=== PATIENT | male | born 1955 | race Caucasian/White ===

== ENCOUNTER 2019-01-17 14:21 | Emergency (ER) | payer BC, OTHER ==
[2019-01-17 14:55] VITALS: BP 119/76; PULSE 95; TEMP 98.6; BMI 26.6
--- NOTE | 2019-01-17 15:09 | PDOC ---
History of Present Illness - General Chief Complaint: Shortness of Breath Stated Complaint: Shortness of Breath Time Seen by Provider: 01/17/19 14:59 - History of Present Illness Initial Comments: 01/17/19 15:09 Mr. Lewis is a 63 yo male w/ pmh of HTN, parkinson's, and DM who presents for evaluation from colonoscopy suite following routine colonoscopy over concern for aspiration during procedure today. Patient reports he has cough s/p procedure as well as sore throat however denies other complaints at this time. The patient denies chest pain, shortness of breath, headache and dizziness. Denies fever, chills, nausea, vomit, diarrhea and constipation. Denies dysuria, frequency, urgency and hematuria. Past History - Past Medical History Allergies/Adverse Reactions: Allergies Allergy/AdvReac Type Severity Reaction Status Date / Time No Known Allergies Allergy Verified 01/17/19 14:55 Home Medications: Ambulatory Orders Glimepiride 2 mg PO DAILY 05/08/14 Losartan Potassium 12.5 mg PO DAILY 05/08/14 metFORMIN HCL [Metformin HCl ER] 1,000 mg PO BID 05/08/14 Albuterol Sulfate Inhaler - [Ventolin Hfa Inhaler -] 2 inh PO Q4H PRN #1 inh Amox-Tr/K Cl [Augmentin 400 mg/5 ml Oral Suspension -] 10 ml PO BID #150 ml COPD: No Diabetes: Yes HTN: Yes - Psycho Social/Smoking Cessation Hx Smoking History: Never smoked Have you smoked in the past 12 months: No Information on smoking cessation initiated: No Hx Alcohol Use: No Drug/Substance Use Hx: No Substance Use Type: None Review of Systems - Review of Systems Comments:: 01/17/19 15:10 GENERAL/CONSTITUTIONAL: No fever or chills. No weakness. HEAD, EYES, EARS, NOSE AND THROAT: No change in vision. No ear pain or discharge. No sore throat. CARDIOVASCULAR: No chest pain or shortness of breath RESPIRATORY: +Cough as described. No wheezing, or hemoptysis. GASTROINTESTINAL: No nausea, vomiting, diarrhea or constipation. GENITOURINARY: No dysuria, frequency, or change in urination. MUSCULOSKELETAL: No joint or muscle swelling or pain. No neck or back pain. SKIN: No rash NEUROLOGIC: No headache, vertigo, loss of consciousness, or change in strength/ sensation. ENDOCRINE: No increased thirst. No abnormal weight change HEMATOLOGIC/LYMPHATIC: No anemia, easy bleeding, or history of blood clots. ALLERGIC/IMMUNOLOGIC: No hives or skin allergy. *Physical Exam - Vital Signs Last Vital Signs Temp Pulse Resp BP Pulse Ox 98.6 F 95 H 16 119/76 100 01/17/19 14:25 01/17/19 14:25 01/17/19 14:25 01/17/19 14:25 01/17/19 14:25 - Physical Exam Comments: 01/17/19 15:10 GENERAL: Awake, alert, and fully oriented, in no acute distress HEAD: No signs of trauma, normocephalic, atraumatic EYES: PERRLA, EOMI, sclera anicteric, conjunctiva clear ENT: Auricles normal inspection, hearing grossly normal, nares patent, oropharynx clear without exudates. Moist mucosa NECK: Normal ROM, supple, no lymphadenopathy, JVD, or masses LUNGS: +Coarse lung sounds appreciated throughout lung miller. No distress, speaks full sentences, clear to auscultation bilaterally HEART: Regular rate and rhythm, normal S1 and S2, no murmurs, rubs or gallops, peripheral pulses normal and equal bilaterally. ABDOMEN: Soft, nontender, normoactive bowel sounds. No guarding, no rebound. No masses EXTREMITIES: Normal inspection, Normal range of motion, no edema. No clubbing or cyanosis. NEUROLOGICAL: Cranial nerves II through XII grossly intact. Normal speech, normal gait, no focal sensorimotor deficits SKIN: Warm, Dry, normal turgor, no rashes or lesions noted. ED Treatment Course - LABORATORY CBC & Chemistry Diagram: 01/17/19 15:30 01/17/19 15:30 Medical Decision Making - Medical Decision Making 01/17/19 16:23 Mr. Lewis is a 63 yo male w/ pmh as described who presents for evaluation over concern for bilateral lung sounds noted following procedure earlier today. Patient given duonebs w/ improvement of breathing. Labs as below non-specific. XR negative for acute process. Dr. Walls pagecarlos for consult s/p procedure. Discussed covering patient w/ ABX and attempted to have patient stay for q6 unasyn. Patient refused admission and will sign out AMA. Antibiotics sent to patient's pharmacy. Strict return precautions discussed and verbalized by patient. Patient will f/u outpatient for further evaluation. Laboratory Results - last 24 hr 01/17/19 01/17/19 15:30 15:30 WBC 12.5 H RBC 5.72 H Hgb 16.2 Hct 49.0 D MCV 85.6 MCH 28.3 MCHC 33.1 RDW 13.0 Plt Count 319 MPV 7.6 Absolute Neuts (auto) 10.7 H Neutrophils % 85.6 H D Lymphocytes % 8.4 D Monocytes % 5.3 Eosinophils % 0.3 Basophils % 0.4 Nucleated RBC % 0 Sodium 136 Potassium 3.5 Chloride 98 Carbon Dioxide 27 Anion Gap 11 BUN 13.6 Creatinine 0.9 Est GFR (CKD-EPI)AfAm 104.24 Est GFR (CKD-EPI)NonAf 89.94 Random Glucose 180 H Calcium 9.5 Total Bilirubin 0.6 AST 19 ALT 36 Alkaline Phosphatase 68 Total Protein 7.8 Albumin 4.5 Discharge - Discharge Information Problems reviewed: Yes Clinical Impression/Diagnosis: Lung abnormality Disposition: AGAINST MEDICAL ADVICE - Additional Discharge Information Prescriptions: Albuterol Sulfate Inhaler - [Ventolin Hfa Inhaler -] 2 inh PO Q4H PRN #1 inh PRN Reason: Cough Amox-Tr/K Cl [Augmentin 400 mg/5 ml Oral Suspension -] 10 ml PO BID #150 ml - Follow up/Referral Referrals: Myron Galicia MD [Primary Care Provider] - - Patient Discharge Instructions Patient Printed Discharge Instructions: DI for Aspiration Pneumonia Additional Instructions: You were evaluated today in the ER for your symptoms after your procedure. We performed labs and Xray which were normal and you reported your symptoms improved following a breathing treatment. We suggested you stay for observation and antibiotics and you elected to sign out against medical advice. We sent a proscription for antibiotics and an inhaler to your pharmacy. Please take all medications as proscribed. Follow-up outpatient as soon as possible with Dr. Walls and primary care provider. Return to ER immediately if any fever, chills , difficulty breathing, or other concerning symptoms. - Post Discharge Activity
[2019-01-17] MEDS ORDERED: ALBUTEROL SO4 2.5/IPRATROPIUM 0.5 INH SOL 3 ML VIAL.NEB. NEB ONE (15:21)
[2019-01-17 15:54] LABS: BASO % 0.4 % (0-2.0); EOS % 0.3 % (0-4.5); HEMOGLOBIN 16.2 GM/dL (11.7-16.9); LYMPH % 8.4 % (8-40); MCH 28.3 pg (25.7-33.7); MCHC 33.1 g/dl (32.0-35.9); MEAN CELL VOLUME 85.6 fl (80-96); MEAN PLT VOLUME 7.6 fl (7.5-11.1); MONO % 5.3 % (3.8-10.2); NEUT % 85.6 % (42.8-82.8); PLATELET COUNT 319 K/MM3 (134-434); RBC 5.72 M/mm3 (4.00-5.60); WHITE BLOOD COUNT 12.5 K/mm3 (4.0-10.0)
[2019-01-17 16:18] LABS: ALBUMIN 4.5 g/dl (3.4-5.0); BILIRUBIN,TOTAL 0.6 mg/dL (0.2-1); BLOOD UREA NITROGEN 13.6 mg/dL (7-18); CALCIUM 9.5 mg/dL (8.5-10.1); CREATININE 0.9 mg/dL (0.55-1.3); POTASSIUM 3.5 mmol/L (3.5-5.1); TOT PROT 7.8 g/dl (6.4-8.2)
--- NOTE | 2019-01-17 16:37 | PDOC ---
Attending Attestation - Resident Resident Name: Jovan Bradyorn - ED Attending Attestation I have performed the following: I have examined & evaluated the patient, The case was reviewed & discussed with the resident, I agree w/resident's findings & plan, Exceptions are as noted - HPI HPI: 01/17/19 16:35 Monitor 63-year-old male history of hypertension diabetes Parkinson's here today status post endoscopy per GI report patient had an episode of emesis emesis during the procedure there was concern for aspiration he was initially had an LMA placed and subsequently. Patient is not currently hypoxic he was given 1 DuoNeb at the facility. Transfer here for concerns for possible aspiration pneumonitis or pneumonia patient states that he feels good feels hungry at this time denies any fevers or chills denies any current chest pain - Physicial Exam PE: 01/17/19 16:36 Heart is regular without murmurs rubs or gallops abdomen is soft nontender extremities are warm and well-perfused there is no peripheral edema no calf tenderness skin is warm and dry neurologically the patient is awake alert and oriented x3 awake alert no acute distress lungs are with bilateral crackles and faint wheeze at the bases. - Medical Decision Making 01/17/19 16:36 63-year-old male diabetes hypertension Parkinson's here today with likely aspiration following endoscopy. Due to the patient's persistent wheezing on exam despite treatments will likely require admission rate admission for possible aspiration pneumonitis patient had been given antibiotics prior to arrival by the procedures rn may consider continuing for possible aspiration pneumonia prophylaxis. Will likely require every 4 nebs and chest PT
[2019-01-17] MEDS ORDERED: AMPICILLIN NA/SULBACTAM NA 1.5 GM in SODIUM CHLORIDE 100 ML IVPB ONE (16:56)
== END 2019-01-17 17:40 | disposition left against medical advice (07) ==
LOC: JER 14:21
PROC: 3E0F7GC Introduction of Other Therapeutic Substance into Respiratory Tract, Via Natural or Artificial Opening (ICD-10-PCS; principal; 2019-01-17)
DX: J98.4 Other disorders of lung (principal); Z98.890 Other specified postprocedural states; I10 Essential (primary) hypertension; E11.9 Type 2 diabetes mellitus without complications; Z79.84 Long term (current) use of oral hypoglycemic drugs; G20 Parkinson's disease
CPT/HCPCS: 36415; 71046-TC-FY; 80053; 85025; 99281-25

== ENCOUNTER 2020-11-17 19:15 | Emergency (ER) | payer BC, OTHER ==
[2020-11-17 19:23] VITALS: BP 121/69; PULSE 96; BMI 26.6
[2020-11-17] MEDS ORDERED: LIDOCAINE 1%/EPI 1:100000 (20 ML MULTI DOSE VIAL) ONE (19:57)
[2020-11-17] MEDS ORDERED: LIDOCAINE 1%/EPI 1:100000 (20 ML MULTI DOSE VIAL) IJ ONE (19:57)
== END 2020-11-17 20:45 | disposition home or self-care (01) ==
LOC: JERFT 19:15
DX: L02.212 Cutaneous abscess of back [any part, except buttock and flank] (principal)
CPT/HCPCS: 87070; 87076; 87205; 99283-25

== ENCOUNTER 2020-11-19 16:01 | Emergency (ER) | payer BC ==
[2020-11-19 16:39] VITALS: BP 127/75; PULSE 89; TEMP 98.1; BMI 26.6
== END 2020-11-19 17:31 | disposition home or self-care (01) ==
LOC: JERFT 16:01
DX: Z48.00 Encounter for change or removal of nonsurgical wound dressing (principal)
CPT/HCPCS: 99281-25

== ENCOUNTER 2020-12-12 12:33 | Emergency (ER) | payer BC, OTHER ==
[2020-12-12 12:48] VITALS: BP 119/71; PULSE 89; TEMP 98.3; BMI 26.6
== END 2020-12-12 13:55 | disposition home or self-care (01) ==
LOC: JERFT 12:33 → JER 12:33 → JERFT 13:55
PROC: 0H9BXZZ Drainage of Right Upper Arm Skin, External Approach (ICD-10-PCS; principal; 2020-12-12)
DX: L02.413 Cutaneous abscess of right upper limb (principal)
CPT/HCPCS: 99282-25

== ENCOUNTER 2020-12-15 09:40 | Emergency (ER) | payer BC, OTHER ==
[2020-12-15 10:14] VITALS: BP 140/82; PULSE 86; TEMP 98.2; BMI 27.4
== END 2020-12-15 11:10 | disposition home or self-care (01) ==
LOC: JER 09:40
DX: Z48.00 Encounter for change or removal of nonsurgical wound dressing (principal)
CPT/HCPCS: 99281-25

== ENCOUNTER 2021-04-19 17:39 | Inpatient (IN) | payer BC, OTHER ==
[2021-04-19 17:56] VITALS: BMI 26.9
[2021-04-19] MEDS ORDERED: ASPIRIN 325 MG TABLET PO ONE (19:37)
[2021-04-19] MEDS ORDERED: ATORVASTATIN CA 80 MG TABLET (FP) PO ONE (19:43)
[2021-04-19] MEDS ORDERED: ASPIRIN 325 MG ENTERIC COATED TABLET (FP) ONE (19:50)
[2021-04-19] MEDS ORDERED: ATORVASTATIN CA 80 MG TABLET (FP) ONE (19:50)
[2021-04-19 20:24] LABS: EOS % 4.2 % (0-4.5); HEMATOCRIT 41.7 % (35.4-49); MCH 28.2 pg (25.7-33.7); MCHC 33.6 g/dl (32.0-35.9); MEAN CELL VOLUME 83.8 fl (80-96); MONO % 7.8 % (3.8-10.2); PLATELET COUNT 285 10^3/uL (134-434); RBC 4.97 M/mm3 (4.00-5.60); RDW 13.6 % (11.9-15.9); WHITE BLOOD COUNT 5.5 K/mm3 (4.0-10.0)
[2021-04-19 20:30] LABS: INR 0.93 (0.83-1.09); PROTHROMBIN TIME (PATIENT) 10.7 SEC (9.7-13.0)
[2021-04-19 20:33] LABS: ACTIVATED PTT 27.3 SECONDS (25.2-36.5)
[2021-04-19 20:42] LABS: CHLORIDE 104 mmol/L (98-107); SODIUM 140 mmol/L (136-145)
[2021-04-19 20:45] LABS: CALCIUM 9.5 mg/dL (8.5-10.1)
[2021-04-19 20:46] LABS: ANION GAP 8 MMOL/L (8-16); BLOOD UREA NITROGEN 17.4 mg/dL (7-18); CO2 28 mmol/L (21-32); GLUCOSE,RANDOM 133 mg/dL (74-106)
[2021-04-19 20:48] LABS: SGPT/ALT 24 U/L (13-61)
[2021-04-19 20:49] LABS: CHOLESTEROL 133 mg/dL (50-200); CREATININE 0.9 mg/dL (0.55-1.3); SGOT/AST 12 U/L (15-37); TRIGLYCERIDES 178 mg/dL (0-150)
[2021-04-19 20:50] LABS: BILIRUBIN,TOTAL 0.3 mg/dL (0.2-1); LDL CHOLESTEROL (ONLY SJRH) 75 mg/dL (5-100); TOT PROT 7.1 g/dl (6.4-8.2)
[2021-04-19 20:51] LABS: ALK PHOS 65 U/L (45-117); HDL CHOLESTEROL 45 mg/dL (40-60)
[2021-04-20 06:38] LABS: HEMATOCRIT 43.4 % (35.4-49); HEMOGLOBIN 14.1 GM/dL (11.7-16.9); MCH 27.4 pg (25.7-33.7); MCHC 32.4 g/dl (32.0-35.9); MEAN CELL VOLUME 84.4 fl (80-96); MEAN PLT VOLUME 7.1 fl (7.5-11.1); PLATELET COUNT 287 10^3/uL (134-434); RBC 5.14 M/mm3 (4.00-5.60); RDW 13.5 % (11.9-15.9); WHITE BLOOD COUNT 4.9 K/mm3 (4.0-10.0)
[2021-04-20 06:50] LABS: ALBUMIN 3.8 g/dl (3.4-5.0); BLOOD UREA NITROGEN 17.2 mg/dL (7-18); MAGNESIUM 2.1 mg/dL (1.8-2.4)
[2021-04-20 06:53] LABS: CREATININE 0.8 mg/dL (0.55-1.3)
[2021-04-20 06:54] LABS: BILIRUBIN,TOTAL 0.6 mg/dL (0.2-1); TOT PROT 6.8 g/dl (6.4-8.2)
[2021-04-20] MEDS: INSULIN SLIDING SCALE (NOVOLOG) 1 VIAL SQ SCH ×4 (07:41→21:38)
[2021-04-20] MEDS ORDERED: ENOXAPARIN NA (PORCINE) 40 MG/0.4 ML DISP.SYRIN SQ ONE (09:10)
[2021-04-20] MEDS ORDERED: ASPIRIN COATED 81 MG TABLET.EC ONE (09:10)
[2021-04-20] MEDS: ASPIRIN COATED 81 MG TABLET.EC PO SCH (09:15)
[2021-04-20] MEDS: ENOXAPARIN NA (PORCINE) 40 MG/0.4 ML DISP.SYRIN SQ SCH (09:15)
[2021-04-20 17:21] LABS: URINE APPEARANCE CLEAR; URINE BILIRUBIN NEGATIVE (NEGATIVE); URINE COLOR YELLOW; URINE GLUCOSE (UA) 3+ (NEGATIVE); URINE KETONE NEGATIVE (NEGATIVE); URINE LEUK ESTERASE NEGATIVE (NEGATIVE); URINE NITRITE NEGATIVE (NEGATIVE); URINE PROTEIN NEGATIVE (NEGATIVE); URINE UROBILINOGEN 0.2 mg/dL (0.2-1.0)
[2021-04-20] MEDS: predniSONE 20 MG TABLET (UD) PO SCH (18:02)
[2021-04-20] MEDS: valACYclovir HCL 500 MG TABLET (FP) PO SCH (21:39)
[2021-04-20] MEDS ORDERED: ATORVASTATIN CA 40 MG TABLET (FP) PO SCH (22:00)
[2021-04-21] MEDS: valACYclovir HCL 500 MG TABLET (FP) PO SCH (05:49)
[2021-04-21] MEDS: INSULIN SLIDING SCALE (NOVOLOG) 1 VIAL SQ SCH ×2 (06:03→11:54)
[2021-04-21] MEDS: predniSONE 20 MG TABLET (UD) PO SCH (09:50)
[2021-04-21] MEDS: ENOXAPARIN NA (PORCINE) 40 MG/0.4 ML DISP.SYRIN SQ SCH (09:50)
[2021-04-21] MEDS: ASPIRIN COATED 81 MG TABLET.EC PO SCH (09:50)
[2021-04-21 12:41] VITALS: BP 150/91; PULSE 97; TEMP 98.9
== END 2021-04-21 12:58 | disposition home or self-care (01) | DRG 74 ==
LOC: JER 17:39 → JERBED 21:57 → J6WEST-2 04-20 13:37
PROVIDERS: ADMIT Internal Medicine; ATTEND Internal Medicine
DX: G51.0 Bell's palsy (principal); E11.9 Type 2 diabetes mellitus without complications; G20 Parkinson's disease; E03.9 Hypothyroidism, unspecified; I10 Essential (primary) hypertension
CPT/HCPCS: 36415; 70450-TC; 70551-TC; 71045-TC-FY; 80053; 80061; 81003; 82550; 82962; 83036; 83735; 84100; 84443; 84484; 85025; 85027; 85610; 85730; 86850; 86900; 86901; 93005; 93010; 93880-TC; 99285-25; C9803; U0003; U0005